=== PATIENT | female | born 1990 | race Caucasian/White ===

== ENCOUNTER 2018-04-11 11:15 | Emergency (ER) | payer OTHER ==
[~2018-04-11] VITALS: Ht 170.2 cm; Wt 44.5 kg
[2018-04-11 11:20] VITALS: BP 129/78
[2018-04-11 13:05] LABS: BASOPHILS % (AUTO) 0.3 % (0.0-2.0); EOSINOPHILS % (AUTO) 0.3 % (0.0-4.0); HEMATOCRIT 38.4 % (36-48); HEMOGLOBIN 12.4 g/dL (12.0-16.0); LYMPHOCYTES # (AUTO) 1.1 K/uL (2.5-16.5); LYMPHOCYTES % (AUTO) 17.3 % (20.5-51.1); MEAN CORPUSCULAR HEMOGLOBIN 28 pg (27-31); MEAN CORPUSCULAR HGB CONC 32 g/dL (33-37); MEAN CORPUSCULAR VOLUME 86.3 fL (80-94); MONOCYTES # (AUTO) 0.5 K/uL (0.8-1.0); MONOCYTES % (AUTO) 7.4 % (1.7-9.3); NEUTROPHILS # (AUTO) 4.8 K/uL (1.8-7.7); NEUTROPHILS % (AUTO) 74.7 % (42.2-75.2); PLATELET COUNT (AUTO) 192 K/uL (140-450); RED BLOOD CELL COUNT(AUTO) 4.45 MIL/uL (4.20-5.40); RED CELL DISTRIBUTION WIDTH 14.9 % (11.6-13.7); WHITE BLOOD COUNT (AUTO) 6.5 K/uL (4.8-10.8)
[2018-04-11 13:08] LABS: ANION GAP 15.2 (8-16); CARBON DIOXIDE 23.1 mmol/L (21-32); CREATININE 0.8 mg/dL (0.6-1.3); POTASSIUM 3.3 mmol/L (3.5-5.1)
[2018-04-11 13:23] LABS: ALBUMIN 4.5 g/dL (3.4-5.0); FREE T4 (FREE THYROXINE) 0.95 ng/dL (0.76-1.46); THYROID STIMULATING HORMONE 2.61 uIU/mL (0.34-3.74); TOTAL BILIRUBIN 0.5 mg/dL (0.0-1.0)
[2018-04-11 14:19] VITALS: BP 122/75
== END 2018-04-11 14:20 | disposition home or self-care (01) ==
LOC: MED 11:15
DX: F41.9 Anxiety disorder, unspecified (principal); K92.0 Hematemesis
CPT/HCPCS: 36415; 80053; 84439; 84443; 84481; 84703; 85025; 99284

== ENCOUNTER 2018-04-14 02:31 | Emergency (ER) | payer OTHER ==
[~2018-04-14] VITALS: Ht 170.2 cm; Wt 44.5 kg
[2018-04-14 02:49] VITALS: BP 114/66
--- NOTE | 2018-04-14 02:50 | NUR ---
Amb to bed 5 with spouse.
--- NOTE | 2018-04-14 02:55 | NUR ---
27/F CAME IN W C/O HEADACHE, DIZZINESS AND LT EAR RINGING X 1 WEEK. DENIES TRAUMA/LOC/SYNCOPE,VISUAL PROBLEMS, N/V, CP/SOB PMH: ANXIETY
--- NOTE | 2018-04-14 03:33 | NUR ---
Dr. Ramos evaluating patient at bedside.
[2018-04-14] MEDS ORDERED: diphenhydrAMINE 50 MG CAP PO ONE (03:35)
[2018-04-14] MEDS ORDERED: PROCHLORPERAZINE 10 MG/2 ML VIAL IM ONE (03:35)
[2018-04-14 04:36] VITALS: BP 128/72
== END 2018-04-14 04:36 | disposition home or self-care (01) ==
LOC: MED 02:31
DX: G44.209 Tension-type headache, unspecified, not intractable (principal); F41.9 Anxiety disorder, unspecified
CPT/HCPCS: 81002; 81025; 96372; 99283; J0780; Q0163

== ENCOUNTER 2018-04-18 14:42 | Emergency (ER) | payer OTHER ==
[~2018-04-18] VITALS: Ht 170.2 cm; Wt 42.8 kg
[2018-04-18 14:45] VITALS: BP 119/40
[2018-04-18] MEDS ORDERED: ACETAMINOPHEN EXTRA STRENGTH 500 MG TAB PO ONE (14:50)
--- NOTE | 2018-04-18 14:54 | NUR ---
PATIENT AMBULATED TO BED 1 AT THIS TIME.
[2018-04-18] MEDS ORDERED: ACETAMINOPHEN EXTRA STRENGTH 500 MG TAB ONE ×2 (14:56→14:59)
--- NOTE | 2018-04-18 14:56 | NUR ---
PATIENT PRESENTS TO ED WITH C/O FEVER, GENERALIZED PAIN, WEAKNESS X 1 MONTH. AAOX4 WITH EVEN AND STEADY GAIT; LUNGS CLEAR BL; HR EVEN AND REGULAR; PT DENIES ANY FEVER, CP, SOB, OR COUGH AT THIS TIME; DENIES N/V/D; SKIN IS PINK/WARM/DRY; PATIENT STATES PAIN OF 8/10 AT THIS TIME; VSS; PATIENT POSITIONED FOR COMFORT; HOB ELEVATED; BEDRAILS UP X2; BED DOWN. ER MD MADE AWARE OF PT STATUS.
--- NOTE | 2018-04-18 15:04 | NUR ---
Patient being evaluated by physician at bedside.
[2018-04-18] MEDS ORDERED: KETOROLAC 30 MG/ML VIAL IVP ONE (15:05)
[2018-04-18] MEDS ORDERED: NACL 0.9% 1,000 ML IV ONE (15:05)
[2018-04-18 17:04] VITALS: BP 110/45
--- NOTE | 2018-04-18 17:04 | NUR ---
Patient discharged with v/s stable. Written and verbal after care instructions given and explained. Patient alert, oriented and verbalized understanding of instructions. Ambulatory with steady gait. All questions addressed prior to discharge. ID band removed. Patient advised to follow up with PMD. Rx of CIPRO, MOTRIN, TAMIFLU given. Patient educated on indication of medication including possible reaction and side effects. Opportunity to ask questions provided and answered.
== END 2018-04-18 17:04 | disposition home or self-care (01) ==
LOC: MED 14:42
DX: J11.1 Influenza due to unidentified influenza virus with other respiratory manifestations (principal); N39.0 Urinary tract infection, site not specified
CPT/HCPCS: 81002; 81025; 96374; 99284; J1885; J7030